=== PATIENT | male | born 1960 | race Caucasian/White ===

== ENCOUNTER 2018-04-17 13:26 | Emergency (ER) | payer OTHER ==
[~2018-04-17] VITALS: Ht 188 cm; Wt 104.5 kg
[2018-04-17] MEDS ORDERED: ORPH100T2 PO (14:22)
[2018-04-17] MEDS ORDERED: ketorolac tromethamine 15mg/ml inj. IM ONE (14:25)
[2018-04-17] MEDS ORDERED: orphenadrine citrate 60mg/2ml inj. IM ONE (14:25)
[2018-04-17 14:50] VITALS: BP 134/90
== END 2018-04-17 14:54 | disposition home or self-care (01) ==
LOC: ER 13:26
DX: S16.1XXA Strain of muscle, fascia and tendon at neck level, initial encounter (principal); S50.02XA Contusion of left elbow, initial encounter; V89.2XXA Person injured in unspecified motor-vehicle accident, traffic, initial encounter; Y93.89 Activity, other specified; Y92.410 Unspecified street and highway as the place of occurrence of the external cause; Y99.8 Other external cause status; Z98.890 Other specified postprocedural states; Z88.1 Allergy status to other antibiotic agents; Z79.899 Other long term (current) drug therapy
CPT/HCPCS: 96372; 99284; J1885; J2360